=== PATIENT | female | born 1985 | race Two or more races ===

== ENCOUNTER 2023-01-05 10:18 | Inpatient (IN) ==
[2023-01-05] MEDS ORDERED: Lactated Ringers 1000 ml BAG 1,000 ML IV ONE ×2 (11:01→20:16)
[2023-01-05] MEDS ORDERED: Oxytocin in LR 20,000 MILLI.UNIT/1,000 ML BAG IV SCH (11:15)
[2023-01-05 11:58] LABS: ABS Eosinophils 0.1 10^3/uL (0.0-0.5); ABS Lymphocytes 1.5 10^3/uL (1.0-4.8); ABS Monocytes 0.6 10^3/uL (0.0-0.9); ABS Neutrophils 4.2 10^3/uL (1.5-7.6); ABS Nucleated RBC 0.01 10^3/ul; Hematocrit 34.9 % (35-45); Hemoglobin 11.9 g/dL (11.5-14.3); Mean Corpuscular Hemoglobin 32.7 pg (27-33); Mean Corpuscular Volume 96.1 fL (80-97); Mean Platelet Volume 10.1 fL (7.5-11.2); Nucleated Red Blood Cells % 0.1 /100 WBC (0.0-0.4); Platelet Count 208 10^3/uL (150-450); Red Blood Count 3.63 10^6/uL (3.63-4.92); Red Cell Distribution Width 13.9 % (12-17); White Blood Count 6.6 10^3/uL (3.8-11.8)
[2023-01-05] MEDS: Lactated Ringers 1000 ml BAG 1,000 ML IV SCH ×3 (13:00→22:11)
[2023-01-05 13:46] LABS: Urine Benzodiazepine Screen None Detected (None Detect); Urine Cannabinoids Screen None Detected (None Detect); Urine Opiates Screen None Detected (None Detect)
[2023-01-05] MEDS ORDERED: Lidocaine 1.5% EPI 1:200,000 30 ML SDV ONE (19:21)
[2023-01-05] MEDS ORDERED: OBEPIDURAL (200 ML) 200 ML EPIDURAL ONE (19:21)
[2023-01-05] MEDS ORDERED: Sodium Citrate/Citric Acid LIQ 15 ML UDC PO PRN (20:16)
[2023-01-05] MEDS ORDERED: Phenylephrine 40 mcg/mL 10mL (400mcg) SYRINGE IV PUSH PRN ×2 (20:16)
[2023-01-05] MEDS ORDERED: Lactated Ringers 1000 ml BAG 1,000 ML IV SCH (21:00)
[2023-01-05] MEDS ORDERED: OBEPIDURAL (200 ML) 200 ML EPIDURAL SCH (21:00)
[2023-01-05 21:08] LABS: Urine Appearance Clear; Urine Bilirubin Negative (Negative); Urine Blood Negative (Negative); Urine Color Yellow; Urine Glucose Negative (Negative); Urine Ketones Negative (Negative); Urine Nitrite Negative (Negative); Urine Protein Negative (Negative); Urine Specific Gravity 1.006 (1.002-1.030); Urine Urobilinogen Negative (Negative)
[2023-01-06] MEDS: Lactated Ringers 1000 ml BAG 1,000 ML IV SCH ×2 (04:39→08:41)
[2023-01-06] MEDS ORDERED: Oxytocin in LR 20,000 MILLI.UNIT/1,000 ML BAG IV SCH ×2 (05:15→10:30)
[2023-01-06] MEDS ORDERED: ceFAZolin 2 GM in NS PREMIX 2 GM/100 ML BAG IVPB ONE (07:19)
[2023-01-06] MEDS ORDERED: Azithromycin 500 mg/250 ml NS 500 MG/250 ML BAG IVPB ONE (07:19)
[2023-01-06] MEDS ORDERED: Methylergonovine 0.2 mg AMPULE 1 ml AMP IM ONE (07:49)
[2023-01-06] MEDS ORDERED: Carboprost Tromethamine 250 mcg 1 ml VIAL IM ONE (07:49)
[2023-01-06] MEDS ORDERED: ceFAZolin 2 GM/50 ML BAG IV ONE (08:00)
[2023-01-06] MEDS ORDERED: Scopolamine 1 mg/72hr PATCH TRANSDERM PRN (08:28)
[2023-01-06] MEDS ORDERED: Naloxone 0.4 mg VIAL 0.4 mg/ml 1 ml VIAL IV PRN (08:28)
[2023-01-06] MEDS ORDERED: fentaNYL 100 mcg/2 ml 50 MCG/ML VIAL IV PRN (08:28)
[2023-01-06] MEDS ORDERED: Chloroprocaine 3% 20 ml VIAL ONE (08:48)
[2023-01-06] MEDS ORDERED: fentaNYL 100 mcg/2 ml 50 MCG/ML VIAL ONE ×2 (08:52→10:07)
[2023-01-06] MEDS ORDERED: Oxytocin 10 UNITS/ML 1 ML VIAL ONE (08:56)
[2023-01-06] MEDS ORDERED: Ondansetron 4 mg VIAL 2 MG/ML 2 ml VIAL ONE (08:56)
[2023-01-06] MEDS ORDERED: Dexamethasone IV 4 MG/ML VIAL 1 ml VIAL ONE (08:56)
[2023-01-06] MEDS ORDERED: Phenylephrine 40 mcg/mL 10mL (400mcg) SYRINGE ONE ×3 (09:29→09:44)
[2023-01-06] MEDS ORDERED: Morphine PF AMP (0.5MG/ML) 5 MG/10 ML AMP ONE ×2 (09:32→10:26)
[2023-01-06] MEDS ORDERED: Phenylephrine IV 10 MG/ML 1 ml VIAL ONE (09:53)
[2023-01-06] MEDS ORDERED: Dibucaine 1% OINT 28.35 GM TUBE PR PRN (10:20)
[2023-01-06] MEDS ORDERED: Glycerin ADULT 2.4 gm SUPP PR PRN (10:20)
[2023-01-06] MEDS ORDERED: Witch Hazel PAD JAR TOPICAL PRN (10:20)
[2023-01-06] MEDS ORDERED: Naloxone 0.4 mg VIAL 0.4 mg/ml 1 ml VIAL IV PUSH PRN (10:28)
[2023-01-06] MEDS ORDERED: Ondansetron 4 mg VIAL 2 MG/ML 2 ml VIAL IV PRN (10:28)
[2023-01-06] MEDS ORDERED: Acetaminophen IV 1 GM/100ML 1,000 MG/100 ML BAG IV PRN (10:28)
[2023-01-06] MEDS ORDERED: Metoclopramide 5 MG/ML VIAL (10 mg) IV PRN (10:28)
[2023-01-06] MEDS ORDERED: Lactated Ringers 1000 ml BAG 1,000 ML IV SCH (11:00)
[2023-01-07 07:00] LABS: ABS Eosinophils 0.1 10^3/uL (0.0-0.5); ABS Lymphocytes 2.1 10^3/uL (1.0-4.8); ABS Monocytes 0.6 10^3/uL (0.0-0.9); ABS Neutrophils 8.3 10^3/uL (1.5-7.6); Eosinophil % 1.2 %; Hematocrit 25.6 % (35-45); Hemoglobin 8.7 g/dL (11.5-14.3); Lymphocyte % 19.1 %; Mean Corpuscular Hemoglobin 33.2 pg (27-33); Mean Corpuscular Hgb Conc 34.1 g/dL (31-36); Mean Corpuscular Volume 97.6 fL (80-97); Mean Platelet Volume 9.9 fL (7.5-11.2); Platelet Count 160 10^3/uL (150-450); Red Blood Count 2.62 10^6/uL (3.63-4.92); Red Cell Distribution Width 13.6 % (12-17); White Blood Count 11.2 10^3/uL (3.8-11.8)
[2023-01-09 09:54] VITALS: BP 106/64
== END 2023-01-09 11:45 | disposition home or self-care (01) | DRG 540 ==
LOC: MCHOBOUT 10:18 → MCHOB 10:51
PROVIDERS: ADMIT Midwife; ATTEND Midwife